=== PATIENT | male | born 1980 | race Caucasian/White ===

== ENCOUNTER → 2018-12-21 | Outpatient (CLI) | payer SELFPAY ==
[2018-12-21 11:11] VITALS: BMI 24.3
[2018-12-21 12:04] LABS: Bacteria 0 SEEN /hpf (None Seen); Mucous, Urine 0 SEEN /hpf (<or=2+); Squamous Epithelial Cells - UA 0 SEEN /hpf (0-5); White Blood Cells 0 SEEN /hpf (0-5)
[2018-12-21 13:05] LABS: Color, Urine Yellow (Yellow); Glucose, Dipstick Normal (Normal); Ketone-Dipstick Negative (Negative); Leukocyte Esterase-Dipstick Negative /ul (Negative); Nitrite-Dipstick Negative (Negative); Occult Blood-Urine 10 /ul (Negative); Protein-Dipstick Negative (Negative); Urine Bilirubin Dipstick Negative (Negative); Urine Clarity Clear (Clear); Urine Urobilinogen Normal (Normal)
[2018-12-21 13:13] LABS: Red Blood Cells-Urine 0-5 SEEN /hpf (0-5)
== END | disposition home or self-care (01) ==
LOC: LABSPEC 12:02
PROVIDERS: Family Provider Internal Medicine; PCP Internal Medicine; Visit Provider Nurse Practitioner Family
DX: Z00.00 Encounter for general adult medical examination without abnormal findings (principal)
CPT/HCPCS: 81001

== ENCOUNTER → 2019-01-10 08:34 | Outpatient (CLI) | payer OTHER, SELFPAY ==
[2018-12-21 11:11] VITALS: BMI 24.3
[2019-01-10 08:52] LABS: Hematocrit 47.4 % (40-54); Hemoglobin 15.4 g/dL (13.0-16.5); Mean Corp Hgb Conc 32.5 g/dL (32-36); Mean Corpuscular Hgb 30.6 pg (27.0-32.0); Mean Platelet Vol. 9.7 fl (6.2-12.0); Platelet Count 212 K/mm3 (150-450); RBC Distribution Width CV 12.4 % (11.6-14.6); RBC Distribution Width SD 43.1 fl (35.1-43.9); Red Blood Count 5.04 M/mm3 (4.6-6.2); White Blood Count 8.3 K/mm3 (4.4-11.0)
[2019-01-10 09:35] LABS: ALB/GLOB Ratio 1.2 RATIO (0.9-2.4); AST(SGOT) 19 U/L (15-37); Alanine Aminotransfer ALT/SGPT 25 U/L (16-61); Albumin, Serum 4.2 g/dL (3.2-5.0); Alkaline Phosphatase 84 U/L (45-117); Anion Gap 2 (5-15); BUN 24 mg/dL (7-18); BUN/Creat Ratio 19.4 RATIO (10-20); Calcium,Total 9.2 mg/dL (8.5-10.1); Chloride 106 mmol/L (98-107); Cholesterol 194 mg/dL (200); Creatinine, Serum 1.24 mg/dL (0.70-1.30); EST Glomerular Filtration Rate 69 mL/min (>60); Est Glom Filt Rate - Afr Amer 84 mL/min (>60); Globulin 3.5 g/dL (2.2-4.2); Glucose 99 mg/dL (74-106); High Density Lipoprotein 46 mg/dL; Protein, Total 7.7 g/dL (6.4-8.2); Sodium Level 140 mmol/L (136-145); Thyroid Stim Hormone (TSH) 0.84 uIU/mL (0.358-3.74); Triglycerides 208 mg/dL; Very Low Density Lipoprotein 42 mg/dL (5-40)
== END ==
PROVIDERS: Family Provider Internal Medicine; PCP Internal Medicine; Referring Provider Nurse Practitioner Family; Visit Provider Nurse Practitioner Family
DX: Z00.00 Encounter for general adult medical examination without abnormal findings (principal)
CPT/HCPCS: 36415; 80053; 80061; 84443; 85027

== ENCOUNTER → 2019-01-17 17:09 | Outpatient (CLI) | payer OTHER, SELFPAY ==
[2018-12-21 11:11] VITALS: BMI 24.3
--- NOTE | 2019-01-17 17:11 | CT_ITS ---
STUDY: CT ABDOMEN AND PELVIS WITHOUT CONTRAST REASON FOR EXAM: Male, 38 years old. Microhematuria RADIATION DOSAGE (If Supplied By Facility): CTDIvol = ( 7.24 ) mGy, DLP = ( 352.77 ) mGycm TECHNIQUE: Transaxial images were obtained from the dome of the diaphragm to the symphysis pubis without oral contrast, and without intravenous contrast. Sagittal and coronal images were reconstructed. Individualized dose optimization techniques were used for this CT. COMPARISON: None. FINDINGS: Examination is limited due to lack of IV contrast. Assessment of solid organs is limited. Diagnostic information is available. There is a 4 mm left renal upper calyceal stone without hydronephrosis. There are no ureteral stones. Right collecting system is clear. The visualized lung bases are unremarkable. The visualized portions of the heart are within normal limits. Normal liver. Normal gallbladder and extrahepatic biliary system. Normal spleen. Normal pancreas. Normal bilateral adrenal glands. Normal visualized stomach. Normal small intestine. Normal colon. The appendix is visualized and appears normal. Normal abdominal aorta. Normal inferior vena cava. Normal retroperitoneum. Normal urinary bladder. Normal abdominal wall. Normal osseous structures. CT/Abdomen/Pelvis without Cont IMPRESSION: 1. 4 mm left renal upper calyceal nonobstructing stone. 2. Refer to ultrasonography for further evaluation of kidneys, to exclude presence of renal parenchymal lesion in the setting of hematuria. Electronically Signed: Omkar Patterson, at 17:46 EDT Tel , Service support ,
== END ==
PROVIDERS: Family Provider Internal Medicine; PCP Internal Medicine; Referring Provider Urology; Visit Provider Urology
DX: R31.21 Asymptomatic microscopic hematuria (principal)
CPT/HCPCS: 74176

== ENCOUNTER 2019-02-04 05:48 | Day surgery (SDC) | payer OTHER, SELFPAY ==
[2018-12-21 11:11] VITALS: BMI 24.3
[2019-02-04] VITALS (7 sets, daily range): BP systolic 101–113; BP diastolic 70–83; PULSE 50–75; RESP 16; TEMP 36.1–36.9; O2SAT 94–96; BMI 25.2
--- NOTE | 2019-02-04 05:50 | RAD_ITS ---
STUDY: X-RAY - ABDOMEN/PELVIS REASON FOR EXAM: Male, 38 years old. Abdominal pain TECHNIQUE: Single AP view of the abdomen / pelvis. COMPARISON: None. FINDINGS: Normal visualized lung bases. There is a moderate amount of colonic fecal material. Limited evaluation for free air on a supine radiograph. Nonspecific bowel gas pattern. The visualized liver, spleen and kidneys are grossly normal in size and morphology. Normal soft tissue structures. Normal visualized osseous structures. RAD/Abdomen Single View IMPRESSION: Moderate stool in colon. Nonspecific bowel gas pattern. Electronically Signed: Nolan Burrell, at 6:49 EDT Tel , Service support ,
[2019-02-04] MEDS: Lactated Ringers 1,000 ML 100 ML IV ×2 (06:47→09:15)
[2019-02-04] MEDS: Cefazolin 2 GM in 0.9% Normal Saline 100 ML IV (07:36)
--- NOTE | 2019-02-04 07:41 | DCINST_ITS ---
Discharge Diet: No Restrictions, Light diet - advance as tolerated Discharge Activity: Return to Normal Activity Call your doctor if your incision/area has: Sudden Increased Bleeding Call your doctor if you observe: Fever of 101 or Higher Instructions: Shock Wave Lithotripsy Additional Instructions: use Ibuprofen 800mg 1 po every 8 hour for pain and tylenol 500mg 1 po q4h every 4hr for pain push fluids. Allergies/Adverse Reactions: Allergies No Known Allergies Allergy (Verified 02/04/19 06:31) Medications to take at Discharge nicotine (polacrilex) 2 mg gum 2 mg BUCCAL Q2H 11/25/17 Primary Care Physician: Judith Arteaga MD [Primary Care Provider] - Test Results: Test results from this visit will be discussed in further detail at your follow- up appointment, if applicable. Please Follow Up With: Michael Grajeda MD When: in 2 weeks, please call to make an appointment.
--- NOTE | 2019-02-04 08:16 | PCM.OPRPT ---
Report of Operation Date of Procedure: 02/04/19 Pre-Operative Diagnosis: Left renal calculi Post-Operative Diagnosis: Same Surgery/Procedure Performed:: Left extracorporeal shockwave lithotripsy Description of Surgical Findings:: 38-year-old male taken back to the operating room at the smooth induction of general anesthesia he was placed supine on the table we then located the stone in the upper pole of the left kidney using fluoroscopy and translation technique we started lithotripsy of the stone at a rate of 90 working her power up from 5 to 7 kV after thousand shockwaves a stone or broke up fairly well but we still see some few fragments we continue with treatment we are monitoring the stone with fluoroscopy during the entire treatment and then decided to treat the stone with 2000 shockwaves at that point in 2000 shockwaves stone it broken up fairly well. Under fluoroscopy could not see any more significant fragments successful treatment of the stone. No stent was placed and patient anesthetic is currently being reversed plan to see him back in a few weeks with an x-ray. Type of Anesthesia:: General Drains: none - Admit VTE Documentation VTE Present on Admission: No VTE Mechan Device Prophylaxis: SCD's
[2019-02-04] MEDS: Ketorolac 15 MG/ML Vial IV (09:16)
== END 2019-02-04 10:13 | disposition home or self-care (01) ==
LOC: SDC 05:48 → AC 05:49
PROVIDERS: Family Provider Internal Medicine; PCP Internal Medicine; Referring Provider Urology; Visit Provider Urology
PROC: (CPT 50590; principal; 2019-02-04 07:20)
DX: N20.0 Calculus of kidney (principal); Z87.442 Personal history of urinary calculi; Z87.891 Personal history of nicotine dependence
CPT/HCPCS: 00873; 50590; 74018; J7120; J2405

== ENCOUNTER → 2019-02-08 10:38 | Outpatient (CLI) | payer OTHER, SELFPAY ==
[2019-02-04 06:35] VITALS: BMI 25.2
--- NOTE | 2019-02-08 10:49 | CT_ITS ---
STUDY: CT ABDOMEN AND PELVIS WITHOUT CONTRAST REASON FOR EXAM: Male, 38 years old. Right flank pain and hematuria. Recent lithotripsy. RADIATION DOSAGE (If Supplied By Facility): CTDIvol = ( 7.58 ) mGy, DLP = ( 390.31 ) mGycm TECHNIQUE: Transaxial images were obtained from the dome of the diaphragm to the symphysis pubis without oral contrast, and without intravenous contrast. Sagittal and coronal images were reconstructed. Individualized dose optimization techniques were used for this CT. COMPARISON: Comparison is made with prior study of January 17, 2019. FINDINGS: The visualized lung bases are unremarkable. The visualized portions of the heart are within normal limits. Normal liver. Normal gallbladder and extrahepatic biliary system. Normal spleen. Normal pancreas. Normal bilateral adrenal glands. Normal right kidney. Stable 4 mm nonobstructive calculus in the upper pole calyx of the left kidney. Minimal fullness of the left renal pelvis. Normal visualized stomach. Normal small intestine. Normal colon. The appendix is visualized and appears normal. Normal abdominal aorta. Normal inferior vena cava. Normal retroperitoneum. Normal urinary bladder. There are prostatic calcifications. Normal abdominal wall. Normal osseous structures. CT/Abdomen/Pelvis without Cont IMPRESSION: Stable 4 mm nonobstructive calculus in the upper pole calyx of the left kidney. Electronically Signed: Dung Munoz, at 13:20 EDT , Service support ,
== END ==
PROVIDERS: Family Provider Internal Medicine; PCP Internal Medicine; Referring Provider Urology; Visit Provider Urology
DX: R10.9 Unspecified abdominal pain (principal); R31.9 Hematuria, unspecified
CPT/HCPCS: 74176; 87086

== ENCOUNTER → 2019-03-08 09:35 | Outpatient (CLI) | payer OTHER, SELFPAY ==
[2019-02-04 06:35] VITALS: BMI 25.2
--- NOTE | 2019-03-08 09:36 | RAD_ITS ---
STUDY: X-RAY - ABDOMEN/PELVIS REASON FOR EXAM: Male, 38 years old. Follow-up of left kidney stones. Lithotripsy. TECHNIQUE: Single AP view of the abdomen / pelvis. COMPARISON: 02/04/2019. FINDINGS: Normal visualized lung bases. Possible 4 mm stone in the upper pole of the left kidney. No other definite renal or ureteral stones. There is an unremarkable bowel gas pattern. There is no demonstrated free abdominal air. The visualized liver, spleen and kidneys are grossly normal in size and morphology. Normal soft tissue structures. Normal visualized osseous structures. RAD/Abdomen Single View IMPRESSION: Possible 4 mm stone in the upper pole of the left kidney. Electronically Signed: Mando Gamble MD at 19:20 EST , Service support ,
== END ==
PROVIDERS: Family Provider Internal Medicine; PCP Internal Medicine; Referring Provider Urology; Visit Provider Urology
DX: N20.0 Calculus of kidney (principal)
CPT/HCPCS: 74018

== ENCOUNTER → 2019-12-16 09:49 | Outpatient (CLI) | payer OTHER, SELFPAY ==
[2019-12-16 09:15] VITALS: BMI 25.2
[2019-12-16 09:52] LABS: Bacteria 0 SEEN /hpf (None Seen); Mucous, Urine 0 SEEN /hpf (<or=2+); Red Blood Cells-Urine 0 SEEN /hpf (0-5); Squamous Epithelial Cells - UA 0 SEEN /hpf (0-5); White Blood Cells 0 SEEN /hpf (0-5)
--- NOTE | 2019-12-16 10:15 | RAD_ITS ---
STUDY: X-RAY CHEST REASON FOR EXAM: Male, 39 years old. DYSPNEA FOR ABOUT 2 MONTHS PER PATIENT. TECHNIQUE: PA and lateral views of the chest. COMPARISON: 06/23/2018 FINDINGS: The lungs are clear and expanded. There is no demonstrated pleural abnormality. Normal size heart. Normal mediastinum and reinier. Normal visualized pulmonary arteries. Normal visualized aortic arch and descending thoracic aorta. Normal visualized thoracic spine. Normal visualized ribs, clavicles, and shoulders. There is no demonstrated abnormality of the visualized soft tissue structures of the upper abdomen. RAD/Chest PA and Lateral IMPRESSION: Normal x-ray examination of the chest. Electronically Signed: Leon Chandler MD at 10:39 EDT Tel , Service support ,
[2019-12-16 12:16] LABS: Color, Urine Yellow (Yellow); Glucose, Dipstick Normal (Normal); Ketone-Dipstick Negative (Negative); Leukocyte Esterase-Dipstick Negative /ul (Negative); Nitrite-Dipstick Negative (Negative); Occult Blood-Urine Negative /ul (Negative); Protein-Dipstick Negative (Negative); Urine Bilirubin Dipstick Negative (Negative); Urine Clarity Clear (Clear); Urine Urobilinogen Normal (Normal)
[2019-12-16 12:37] LABS: Vitamin B12 290 pg/mL (211-911); Vitamin D,25 Hydroxy 27.6 ng/mL
[2019-12-16 12:56] LABS: Thyroid Stim Hormone (TSH) 0.86 uIU/mL (0.358-3.74)
== END ==
PROVIDERS: PCP Internal Medicine; Referring Provider Nurse Practitioner Family; Visit Provider Nurse Practitioner Family
DX: R06.00 Dyspnea, unspecified (principal); E56.9 Vitamin deficiency, unspecified; R53.83 Other fatigue; R31.9 Hematuria, unspecified
CPT/HCPCS: 36415; 71046; 81001; 82306; 82607; 84443

== ENCOUNTER → 2020-03-19 | Outpatient (CLI) | payer OTHER, SELFPAY ==
[2020-03-19 09:31] VITALS: BMI 27.4
[2020-03-19 13:40] LABS: Bacteria 0 SEEN /hpf (None Seen); Mucous, Urine 0 SEEN /hpf (<or=2+); Red Blood Cells-Urine 0 SEEN /hpf (0-5); Squamous Epithelial Cells - UA 0 SEEN /hpf (0-5)
[2020-03-19 14:11] LABS: Color, Urine Yellow (Yellow); Glucose, Dipstick Normal (Normal); Ketone-Dipstick Negative (Negative); Leukocyte Esterase-Dipstick 25 /ul (Negative); Nitrite-Dipstick Negative (Negative); Occult Blood-Urine Negative /ul (Negative); Protein-Dipstick Negative (Negative); Urine Bilirubin Dipstick Negative (Negative); Urine Clarity Clear (Clear); Urine Urobilinogen Normal (Normal)
[2020-03-19 14:31] LABS: White Blood Cells 0-5 SEEN /hpf (0-5)
== END | disposition home or self-care (01) ==
LOC: LABSPEC 12:55
PROVIDERS: PCP Internal Medicine; Visit Provider Physician Assistant Surgical
DX: R82.90 Unspecified abnormal findings in urine (principal); R30.0 Dysuria
CPT/HCPCS: 81001

== ENCOUNTER 2021-04-20 18:37 | Emergency (ER) | payer OTHER, SELFPAY ==
[2021-04-20 18:38] VITALS: BP 142/96; PULSE 95; RESP 16; TEMP 35.8; O2SAT 94; BMI 28.3
--- NOTE | 2021-04-20 18:50 | US_ITS ---
STUDY: SCROTUM ULTRASOUND REASON FOR EXAM: Male, 40 years old. R testic pain TECHNIQUE: Ultrasound evaluation of the scrotum was performed with color Doppler and static sweet-scale imaging. COMPARISON: None. FINDINGS: RIGHT TESTICLE INTRATESTICULAR: There is a normal size of the right testicle. The right testicle measures 4.8 x 2.8 x 2.2 cm. There is a homogenous echotexture. There is increased arterial and normal venous vascularity. There is no demonstrated right testicular mass or cyst. EXTRATESTICULAR: The epididymis is normal in size. The epididymis head measures 1.3 x 0.8 x 0.9 cm. There is increased vascularity of the epididymis. There is a tiny epididymal cyst and mild tubular ectasia secondary to prior vasectomy. There is no demonstrated hydrocele. Small VALSALVA induced varicocele. There is no demonstrated extratesticular mass or cyst. LEFT TESTICLE INTRATESTICULAR: There is a normal size of the left testicle. The left testicle measures 3 x 3.1 x 3.5 cm. There is a homogenous echotexture. There is normal arterial and normal venous vascularity. There is no demonstrated left testicular mass or cyst. EXTRATESTICULAR: The epididymis is normal in size. The epididymis head measures 3 x 0.8 x 0.5 cm. There is normal vascularity of the epididymis. There is no demonstrated epididymal cystic structure. There is a small hydrocele. There is no demonstrated varicocele. There is no demonstrated extratesticular mass or cyst. US/Testicular with Arterial Flow IMPRESSION: Findings consistent with acute epididymoorchitis. . Tiny right epididymal cyst and VALSALVA induced varicocele. Small left hydrocele Electronically Signed: Kan Sarmiento MD at 20:48 EST , Service support ,
--- NOTE | 2021-04-20 18:55 | EX.ED.GUMALE ---
HPI History of Present Illness Chief Complaint: Male Pain/Injury Informant: patient Pain Onset: Hours (2) Context: Sudden Onset Timing: Continuous Current Severity: Severe Maximum Severity: Severe Worsened by: any manipulation/movement R testicle Relieved by: nothing; tried ibuprofen Related History Sexually: Active and Single Partner STD: No Narrative Narrative: Patient states he was sitting in a car driving when all of a sudden his right testicle started hurting severely with no obvious cause. No injury. Pain radiating up into his abdomen a little, and down his right thigh a little. Never had this before. No urinary symptoms recently or discharge. No rashes. No history of STDs, no high risk sexual activity. Monogamous with a significant other. No recent illness. [facility] Medical History (Updated 04/20/21 @ 21:[address] Darrell Mansfield MD) Abrasion of left index finger Bipolar disorder (manic depression) COVID-19 vaccine series completed Generalized anxiety disorder MVP (mitral valve prolapse) Need for Tdap vaccination Home Medications albuterol sulfate 90 mcg/actuation aerosol inhaler 2 puff INHALATION Q6H PRN #8.5 g 12/27/20 [Rx Last Taken Unknown] levofloxacin 500 mg PO DAILY #9 tab 04/20/21 [Rx Last Taken Unknown] Allergy/AdvReac Type Severity Reaction Status Date / Time No Known Allergies Allergy Verified 04/20/21 18:37 Family History Grandfather Alcoholism Cancer Depression Heart disease Hypertension Mother Anemia Anxiety Hypertension Hyperlipemia Kidney disease Father Hypertension Hyperlipemia Kidney disease Grandmother Heart disease Anemia Surgical History History of myringotomy History of tonsillectomy History of vasectomy Hx of lithotripsy Social History Smoking Status: Current some day smoker tobacco type: cigarettes Tobacco: How many years used: 18 alcohol intake: current alcohol intake frequency: 0-2 drinks per day substance use type: does not use what type of physical activity do you participate in: other details: does a lot of yard work frequency: daily ROS ROS ED Constitutional Constitutional ED: Denies chills or fever(s) Eyes Eyes: Denies change in vision or diplopia ENT ENT ED: Denies rhinorrhea or sore throat Cardiovascular Cardiovascular: Denies chest pain or palpitations Respiratory/Chest Respiratory/Chest: Denies cough or dyspnea Gastrointestinal Gastrointestinal: Reports nausea; Denies abdominal pain, diarrhea or vomiting Genitourinary Genitourinary ED: Reports as per HPI and scrotal pain; Denies dysuria or hematuria Musculoskeletal Musculoskeletal: Denies back pain or neck pain Integumentary Denies abscess or rash Neurologic Neurologic: Denies headache(s), paresthesias or weakness Psychiatric Psychiatric: Denies anxiety or suicidal thoughts EXAM Physical Exam Const Vital Signs: 04/20/21 18:38 Temperature 96.5 F L Temperature Source Temporal Pulse Rate 95 Respiratory Rate 16 Blood Pressure 142/96 H Blood Pressure Mean 111 Pulse Ox 94 Oxygen Delivery Method Room Air Positive well nourished and well developed General Appearance ED: well developed and NAD HEENT Reports moist mucous membranes normocephalic and atraumatic Eyes PERRL and EOMs intact bilaterally Neck full ROM and supple Resp normal respiratory effort and clear to auscultation bilaterally Cardio regular rate, regular rhythm and no murmurs GI non-tender and non-distended Auscultation: normoactive bowel sounds Palpation: soft Narrative: Left testicle with normal lie and nontender, normal in appearance. Right testicle is somewhat drawn up, it has a different lie, extremely tender to even very mild palpation, cremasteric reflex is absent on the right. No blue dot sign. No palpable hernia, examined while standing. No palpable masses. Back/Spine no CVA tenderness General Back: other FROM Extremity normal to inspection General Extremety ED: Negative for edema, pulses abnormal or tenderness General Extremity: Negative for edema or pulses abnormal Neuro oriented x3, CN's II-XII intact bilaterally and no sensory deficits noted Sensorium / Orientation: awake and alert Motor Exam: strength 5/5 throughout Skin no rashes or lesions noted and no wounds MDM MDM MDM Narrative Medical decision making narrative: Concerned about poss testicular torsion. We do not have any urology coverage today. Therefore emergent ultrasound was ordered for which firestopper technician needed to be called in. In the meantime he was provided with IV morphine and Zofran. Ultrasound is reassuring, showing INCREASED right testicular vascularity, in the testicle as well as epididymis, consistent with epididymoorchitis. Will start him on Levaquin and recommend NSAIDs, and outpatient urologic follow-up if does not improve. He is comfortable with that plan. I did send off for GC and chlamydia although this is a low risk patient for those. Lab Data Attestation: I reviewed the patient's lab results. Labs: Laboratory Results - last 24 hr 04/20/21 19:13 Urine Color Yellow Urine Clarity Sl. Cloudy Urine pH 6.5 Ur Specific [place] 1.020 Urine Protein 15 H Urine Glucose (UA) Normal Urine Ketones Negative Urine Occult Blood 25 H Urine Nitrite Negative Urine Bilirubin Negative Urine Urobilinogen Normal Ur Leukocyte Esterase 100 H Urine RBC 0-5 SEEN Urine WBC 0-5 SEEN Ur Squamous Epith Cells 0-5 SEEN Amorphous Sediment 1+ Urine Bacteria 0 SEEN Urine Mucus 0 SEEN Radiography Diagnostic Testing: Clinical Impression(s) from Imaging Studies Testicular Ultrasound 04/20/21 18:50 IMPRESSION: Findings consistent with acute epididymoorchitis. . Tiny right epididymal cyst and VALSALVA induced varicocele. Small left hydrocele Electronically Signed: Kan Sarmiento MD at 20:48 EST , Service support , Discharge Plan Triage Chief Complaint: Male Pain/Injury ED Provider: Darrell Mansfield Dx/Rx/DC Orders Clinical Impression: Acute epididymo-orchitis Instructions: Treating Epididymitis and Orchitis Prescriptions: New levofloxacin [levofloxacin] 500 MG tablet 500 mg PO DAILY Qty: 9 RF: 0 No Action albuterol sulfate 90 mcg/actuation HFA aerosol inhaler 2 puff inhalation Q6H PRN (Reason: shortness of breath or wheezing) Qty: 8.5 RF: 1 Primary Care Provider: Judith Arteaga Referrals: Judith Arteaga MD [Primary Care Provider] - Michael Grajeda MD [STAFF PHYSICIAN] - 1 Week if not improving Disposition Disposition: Home, Self Care
[2021-04-20 19:18] LABS: Bacteria 0 SEEN /hpf (None Seen); Color, Urine Yellow (Yellow); Glucose, Dipstick Normal (Normal); Ketone-Dipstick Negative (Negative); Leukocyte Esterase-Dipstick 100 /ul (Negative); Mucous, Urine 0 SEEN /hpf (<or=2+); Nitrite-Dipstick Negative (Negative); Occult Blood-Urine 25 /ul (Negative); Protein-Dipstick 15 mg/dl (Negative); Urine Bilirubin Dipstick Negative (Negative); Urine Clarity Sl. Cloudy (Clear); Urine Urobilinogen Normal (Normal); Urine pH 6.5 (5.0 - 8.0)
[2021-04-20] MEDS: Morphine 4 MG/ML Syringe IV (19:23)
[2021-04-20] MEDS: Ondansetron 4 MG/2 ML Vial IV (19:23)
[2021-04-20 19:25] LABS: White Blood Cells 0-5 SEEN /hpf (0-5)
[2021-04-20 19:26] LABS: Red Blood Cells-Urine 0-5 SEEN /hpf (0-5); Squamous Epithelial Cells - UA 0-5 SEEN /hpf (0-5)
[2021-04-20 19:27] LABS: Amorphous Sediment 1+
[2021-04-20] MEDS: levoFLOXacin 500 MG Tablet PO (21:29)
[2021-04-24 00:06] LABS: Chlamydia By Nucleic Acid AMP Negative (Negative)
[2021-04-24 08:45] LABS: Gonococcus By Nucleic Acid AMP Negative (Negative)
== END 2021-04-20 21:31 | disposition home or self-care (01) ==
PROVIDERS: Emergency Provider Emergency Medicine; PCP Internal Medicine
DX: N45.3 Epididymo-orchitis (principal); N43.3 Hydrocele, unspecified; F31.9 Bipolar disorder, unspecified; F17.210 Nicotine dependence, cigarettes, uncomplicated
CPT/HCPCS: 76870; 81001; 87491; 87591; 93976; 96374; 96375; 99282; A4216; J2405

== ENCOUNTER → 2022-01-29 | Outpatient (CLI) | payer OTHER, SELFPAY ==
[2022-01-29 12:53] LABS: Vitamin B12 217 pg/mL (211-911); Vitamin D,25 Hydroxy 14.8 ng/mL
[2022-01-29 12:55] LABS: Thyroid Stim Hormone (TSH) 1.38 uIU/mL (0.358-3.74)
== END | disposition home or self-care (01) ==
LOC: BIMLAB 09:42
PROVIDERS: PCP Nurse Practitioner Family; Referring Provider Nurse Practitioner Family; Visit Provider Nurse Practitioner Family
DX: E56.9 Vitamin deficiency, unspecified (principal); R63.5 Abnormal weight gain
CPT/HCPCS: 36415; 82306; 82607; 84443

== ENCOUNTER → 2022-02-03 | Outpatient (CLI) | payer OTHER, SELFPAY ==
[2022-02-03 16:32] LABS: Absolute Lymphocyte Count 2.35 X10^3/uL (0.83-4.51); Basophil# 0.06 X10^3/uL; Basophil% 0.8 % (0-1); Eosinophil# 0.25 X10^3/uL; Eosinophils% 3.5 % (0-5); Hematocrit 44.4 % (40-54); Hemoglobin 14.6 g/dL (13.0-16.5); Lymphocyte # 2.35 X10^3/ul (0.83-4.51); Lymphocyte % 32.7 % (19-41); Mean Corp Hgb Conc 32.9 g/dL (32-36); Mean Corpuscular Hgb 30.8 pg (27.0-32.0); Mean Corpuscular Volume 93.7 fL (80-94); Mean Platelet Vol. 10.8 fl (6.2-12.0); Monocyte# 0.49 X10^3/uL; Monocyte% 6.8 % (0-10); NRBC Flagged by Analyzer 0 % (0-5); Neutrophil # 3.99 X10^3/uL (2.7-7.7); Neutrophil % 55.6 % (47-70); Platelet Count 250 K/mm3 (150-450); RBC Distribution Width SD 41.7 fl (35.1-43.9); Red Blood Count 4.74 M/mm3 (4.6-6.2); White Blood Count 7.2 K/mm3 (4.4-11.0)
[2022-02-03 16:51] LABS: ALB/GLOB Ratio 1.1 RATIO (0.9-2.4); AST(SGOT) 27 U/L (15-37); Alanine Aminotransfer ALT/SGPT 55 U/L (16-61); Albumin, Serum 4.2 g/dL (3.2-5.0); Alkaline Phosphatase 82 U/L (45-117); Anion Gap 6 (5-15); BUN 14 mg/dL (7-18); BUN/Creat Ratio 11.5 RATIO (10-20); Calcium,Total 9.3 mg/dL (8.5-10.1); Chloride 107 mmol/L (98-107); Creatinine, Serum 1.22 mg/dL (0.70-1.30); EST Glomerular Filtration Rate 69 mL/min (>60); Est Glom Filt Rate - Afr Amer 84 mL/min (>60); Globulin 3.7 g/dL (2.2-4.2); Glucose 98 mg/dL (74-106); Potassium 4.2 mmol/L (3.5-5.1); Protein, Total 7.9 g/dL (6.4-8.2); Sodium Level 141 mmol/L (136-145); Troponin-I HS < 3 pg/mL (3.0-78.0)
[2022-02-07 00:08] LABS: Endomysial Antibody IgA Negative (Negative); Immunoglobulin A 100 mg/dL (90-386)
[2022-02-08 15:02] LABS: Vitamin B1, Thiamine 135.2 nmol/L (66.5-200.0); t-Transglutaminase IgA <2 U/mL (0-3)
== END | disposition home or self-care (01) ==
LOC: BIMLAB 15:12
PROVIDERS: PCP Nurse Practitioner Family; Referring Provider Internal Medicine; Visit Provider Internal Medicine
DX: R42 Dizziness and giddiness (principal); E56.9 Vitamin deficiency, unspecified; Z78.9 Other specified health status
CPT/HCPCS: 36415; 80053; 82784; 83516; 84425; 84484; 85025; 86255

== ENCOUNTER 2022-03-17 13:59 | Outpatient (CLI) | payer OTHER, SELFPAY ==
--- NOTE | 2022-03-17 14:08 | RAD_ITS ---
STUDY: X-RAY - ABDOMEN/PELVIS REASON FOR EXAM: Male, 41 years old. Hematuria. TECHNIQUE: Single AP view of the abdomen / pelvis on 2 images. COMPARISON: February 04, 2019. FINDINGS: Normal visualized lung bases. There is an unremarkable bowel gas pattern with gas seen to the rectosigmoid. There is no demonstrated free abdominal air. The visualized liver, spleen and kidneys are grossly normal in size and morphology. Normal soft tissue structures. Normal visualized osseous structures. RAD/Abdomen Single View IMPRESSION: No interval change. No acute finding of the lower chest, abdomen or pelvis. Electronically Signed: Ezio Milian, at 15:29 EST ,
== END 2022-03-17 23:59 | disposition home or self-care (01) ==
LOC: RAD 14:00
PROVIDERS: PCP Nurse Practitioner Family; Visit Provider Registered Nurse
DX: R31.9 Hematuria, unspecified (principal)
CPT/HCPCS: 74018

== ENCOUNTER 2022-03-19 10:00 | Outpatient (RCR) | payer OTHER, SELFPAY ==
--- NOTE | 2022-02-21 09:53 | HP.PTEVAL_ITS ---
Patient's Visit Information LEÓN CALLEJAS is a 41 year old M referred to Physical Therapy by ROSEMARIE Vela with a diagnosis of Dizziness and Giddiness. Date of Evaluation: 02/21/22 Physical Therapist: NI Albrecht - Visit Plan Frequency: 1-2x /Week Duration: 3 Months Plan: 1-2X/ week for 8-12 weeks for head movements (habituation) (vertical is worse than horizotnal), vestibular inputs (foam with EC), gait training, VOR exercises with HEP - Subjective Pt has been dizzy on/off since Jan 31. Was at PCP got ears flushed. Got B 12 shot and found was Vit D deficitient. Was dizzy at air port 2 (Jan 31) days later and dry heaves and dizziness at the air port. Made it to the gait. Did not get on the flight. Dr at this point wondering if it is anxiety/depression. He reports that his dizziness (does not feel like he is falling), feels pressure behind his eyes, feels fatigued, hard to think, and exacurbated by social situations. He has never had issue before with social situations. He is on a PRN med for anxiety (hydroxine). He took is once and made him a little more dizzy. He was given effexor (has only take once and threw up). He works in the hospital. He does not get the dizzy at night. He feels dizzy right now. He is always stressed. Loud noises bother him. He is a little bothered by the speckles in the carpet. Driving does not bother him except he feels tired. He is sleeping. He reports that he does not get room spinning dizziness. He is still working... He only does yard work for exercises. No MCNEIL. did all the blood tests (neuro exam and blood work). Sleeping ok. Stairs are ok. He reports some unsteadiness with walking when he feels that he is going to pass out. - Objective Gait: Walks with normal gait pattern. CATSIB 85 (standing on foam with EC in crease spinning in clockwise motion and had to grab therapist due to being dizzy). FGA 23. Smooth Pursuit vertical and horizontal: slight increase in dizziness (vertical pt had some eye jumpiness when trying to keep track of the target). VOR X 1: (head shake with eyes focused) X 30 seconds... slight increase in dizziness. VOR Cx: (head and eyes moving in same direction): Horizontal.. Increase dizziness and nauseated and vertical.... X 15 seconds not as fluid movement, increase dizziness and increase eye squinting. Same as above in standing: (horizontal...some dizziness but same as in sitting). Vertical: (X 10 seconds increase dizziness and hard to keep head moving). Pt was stirred up after the evaluation... his eyes were tired. - Balance/Special Test Scores Functional Gait Assessment Score: 23 % Disability: 23.3400 CATSIB Score (Max score 120 seconds): 85 Dizziness Score: 36 - Goals Goal 1:: I HEP Progression Goal Time Frame: 8-12 Weeks Goal 2:: Be able to walk with horizontal and vertical head turns without LOB or dizziness or nausea Goal Time Frame: 8-12 Weeks Goal 3:: Be able to stand on foam with EC for 30 seconds without LOB Goal Time Frame: 8-12 Weeks Goal 4:: Be able to perform FGA with increase score (score was 23 at eval) Goal Time Frame: 8-12 Weeks Goal 5:: Be able to subjectively describe less dizziness and increase function throughout the day by 50% Goal Time Frame: 8-12 Weeks - Rehabilitation Potential Rehabilitation Potential: Good - Anticipated Interventions Patient/Client Instruction: Educate patient on: Condition, Plan of Care For the Purpose of:: To improve nutrient delivery to tissue, To improve muscle performance and motor function, To improve ability to perform ADL's, To increase tolerance to activity/condition/position, To improve performance and independence with ADL's, To decrease level of supervision to perform tasks, To improve ability of physical actions for home/community/work/leisure, To improve gait and locomotor functions, To improve health of tissue, To increase flexibility/ROM, To improve endurance, To improve balance, To improve safety with gait Therapeutic Exercise to Include: Endurance training, Balance training, Coordination, Body mechanics, Postural training, Gait and locomotor training, Neuromotor development, via [employer] Balance Mas For the Purpose of:: To improve ability to perform ADL's, To increase tolerance to activity/condition/position, To improve performance and independence with ADL's, To improve ability of physical actions for home/community/work/leisure, To improve gait and locomotor functions, To improve balance, To improve safety with gait Functional Training to Include: Gait training For the Purpose of:: To improve safety with gait Thank you for the opportunity to evaluate your patient. For Medicare and Medicare HMO plans, please review the plan of care and approve it. It will need to be FAXED BACK to us at [phone] for Medicare purposes. For Medicare only, by signing this I certify the plan of care. Please let me know if there are questions or concerns regarding this plan of care. Physician Signature: Date:_
== END 2022-03-19 19:00 | disposition home or self-care (01) ==
LOC: PT 10:00
PROVIDERS: PCP Nurse Practitioner Family; Referring Provider Nurse Practitioner Family; Visit Provider Nurse Practitioner Family
DX: R42 Dizziness and giddiness (principal)
CPT/HCPCS: 97110; 97140; 97161; 97530

== ENCOUNTER 2022-03-28 16:10 | Outpatient (CLI) | payer OTHER, SELFPAY ==
--- NOTE | 2022-03-28 16:23 | MRI_ITS ---
STUDY: MRI BRAIN WITH AND WITHOUT CONTRAST REASON FOR EXAM: Male, 41 years old. VERTIGO, DIZZINESS TECHNIQUE: Standardized multiplanar fat and water weighted pulse sequences were obtained. IV 20mL CLARISCAN was administered for the contrast portion of the examination. COMPARISON: CT brain without contrast 06/24/2016. FINDINGS: INFARCT/HEMORRHAGE/MASS: No acute infarct, hemorrhage, or mass. No midline shift, hydrocephalus or herniation. WHITE MATTER AND VOLUME: The brain has normal signal and volume. POSTCONTRAST: No abnormal enhancement. FLOW VOIDS: Major flow voids preserved. PARANASAL SINUSES: Polypoid mucosal thickening (the right maxillary sinuses. Partial opacification ethmoid air cells due to mucosal thickening. Left alix bullosa. CALVARIUM: Calvarium unremarkable. EXTRACRANIAL SOFT TISSUES: Extracranial soft tissues unremarkable. MRI/Brain W/WO Contrast IMPRESSION: Normal MRI brain without and with intravenous contrast. Electronically Signed: Sergei Casillas MD at 5:56 EST ,
== END 2022-03-28 23:59 | disposition home or self-care (01) ==
LOC: MRI 16:11
PROVIDERS: PCP Nurse Practitioner Family; Referring Provider Nurse Practitioner Family; Visit Provider Nurse Practitioner Family
DX: R42 Dizziness and giddiness (principal)
CPT/HCPCS: 70553; A9575

== ENCOUNTER → 2022-04-30 | Outpatient (CLI) | payer OTHER, SELFPAY ==
[2022-04-30 12:56] LABS: Erythrocyte Sedimentation Rate 3 mm/hr (0-20)
[2022-04-30 13:10] LABS: CRP < 2.90 mg/L (0.0-3.0); Cholesterol 270 mg/dL (200); High Density Lipoprotein 52 mg/dL; Triglycerides 325 mg/dL; Very Low Density Lipoprotein 65 mg/dL (5-40)
[2022-04-30 13:12] LABS: Vitamin B12 419 pg/mL (211-911)
[2022-05-02 19:30] LABS: ANTINUCLEAR ANTIBODIES DIRECT Negative (Negative)
== END | disposition home or self-care (01) ==
LOC: BIMLAB 10:24
PROVIDERS: PCP Nurse Practitioner Family; Referring Provider Nurse Practitioner Family; Visit Provider Nurse Practitioner Family
DX: R53.83 Other fatigue (principal); E53.8 Deficiency of other specified B group vitamins; E78.5 Hyperlipidemia, unspecified
CPT/HCPCS: 36415; 80061; 82607; 85652; 86038; 86140; 86225; 86235

== ENCOUNTER → 2022-05-08 | Outpatient (CLI) | payer OTHER, SELFPAY | END | disposition home or self-care (01) | PROVIDERS: PCP Nurse Practitioner Family; Referring Provider Nurse Practitioner Family; Visit Provider Nurse Practitioner Family | DX: G47.10 Hypersomnia, unspecified (principal); R53.83 Other fatigue; E53.8 Deficiency of other specified B group vitamins | CPT/HCPCS: 95806 ==

== ENCOUNTER → 2022-06-11 | Outpatient (CLI) | payer OTHER, SELFPAY ==
[2022-06-11 13:25] LABS: Amphetamine Urine VISTA NEGATIVE (<1000 ng/mL); Barbiturate Urine VISTA NEGATIVE (< 200 ng/mL); Benzodiazepine Urine VISTA NEGATIVE (< 200 ng/mL); Cocaine Urine VISTA NEGATIVE (< 300 ng/mL); Ecstacy Urine VISTA NEGATIVE (< 500 ng/mL); Methadone Urine VISTA NEGATIVE (< 300 ng/mL); PCP Urine VISTA NEGATIVE (< 25 ng/mL); THC Urine VISTA NEGATIVE (< 50 ng/mL); Vista UDS pH Range 7
== END | disposition home or self-care (01) ==
LOC: LABSPEC 11:55
PROVIDERS: PCP Nurse Practitioner Family; Referring Provider Nurse Practitioner Family; Visit Provider Nurse Practitioner Family
DX: F41.9 Anxiety disorder, unspecified (principal)
CPT/HCPCS: 80307

== ENCOUNTER → 2022-09-19 | Outpatient (CLI) | payer OTHER, SELFPAY ==
[2022-09-19 12:16] LABS: Absolute Lymphocyte Count 2.29 X10^3/uL (0.83-4.51); Basophil# 0.06 X10^3/uL; Eosinophil# 0.38 X10^3/uL; Hematocrit 46.9 % (40-54); Hemoglobin 15.3 g/dL (13.0-16.5); Lymphocyte # 2.29 X10^3/ul (0.83-4.51); Lymphocyte % 36.3 % (19-41); Mean Corp Hgb Conc 32.6 g/dL (32-36); Mean Corpuscular Hgb 30.3 pg (27.0-32.0); Mean Corpuscular Volume 92.9 fL (80-94); Mean Platelet Vol. 10.5 fl (6.2-12.0); Monocyte# 0.58 X10^3/uL; Monocyte% 9.2 % (0-10); NRBC Flagged by Analyzer 0 % (0-5); Neutrophil # 2.95 X10^3/uL (2.7-7.7); Neutrophil % 46.9 % (47-70); Platelet Count 238 K/mm3 (150-450); RBC Distribution Width CV 11.9 % (11.6-14.6); RBC Distribution Width SD 40.8 fl (35.1-43.9); Red Blood Count 5.05 M/mm3 (4.6-6.2); White Blood Count 6.3 K/mm3 (4.4-11.0)
[2022-09-19 12:55] LABS: Vitamin B12 > 2000 pg/mL (211-911); Vitamin D,25 Hydroxy 45.3 ng/mL
[2022-09-19 13:02] LABS: ALB/GLOB Ratio 1.1 RATIO (0.9-2.4); AST(SGOT) 28 U/L (15-37); Alanine Aminotransfer ALT/SGPT 62 U/L (16-61); Alkaline Phosphatase 75 U/L (45-117); Anion Gap 5 (5-15); BUN 21 mg/dL (7-18); BUN/Creat Ratio 18.1 RATIO (10-20); Calcium,Total 8.9 mg/dL (8.5-10.1); Chloride 107 mmol/L (98-107); Cholesterol 190 mg/dL (200); Creatinine, Serum 1.16 mg/dL (0.70-1.30); EST Glomerular Filtration Rate 73 mL/min (>60); Est Glom Filt Rate - Afr Amer 89 mL/min (>60); Globulin 3.8 g/dL (2.2-4.2); Glucose 103 mg/dL (74-106); High Density Lipoprotein 45 mg/dL; Potassium 4.8 mmol/L (3.5-5.1); Protein, Total 7.8 g/dL (6.4-8.2); Sodium Level 139 mmol/L (136-145); Thyroid Stim Hormone (TSH) 0.84 uIU/mL (0.358-3.74); Triglycerides 159 mg/dL; Very Low Density Lipoprotein 32 mg/dL (5-40)
== END | disposition home or self-care (01) ==
LOC: BIMLAB 09:30
PROVIDERS: PCP Nurse Practitioner Family; Referring Provider Nurse Practitioner Family; Visit Provider Nurse Practitioner Family
DX: F41.9 Anxiety disorder, unspecified (principal); F31.9 Bipolar disorder, unspecified; E53.8 Deficiency of other specified B group vitamins; E78.5 Hyperlipidemia, unspecified
CPT/HCPCS: 36415; 80053; 80061; 82306; 82607; 84443; 85025

== ENCOUNTER → 2023-07-30 | Outpatient (CLI) | payer OTHER, SELFPAY ==
[2023-07-30 12:07] LABS: Absolute Lymphocyte Count 2.75 X10^3/uL (0.83-4.51); Basophil# 0.07 X10^3/uL; Eosinophil# 0.32 X10^3/uL; Eosinophils% 4.8 % (0-5); Hematocrit 46.4 % (40-54); Hemoglobin 14.8 g/dL (13.0-16.5); Lymphocyte # 2.75 X10^3/ul (0.83-4.51); Lymphocyte % 40.9 % (19-41); Mean Corp Hgb Conc 31.9 g/dL (32-36); Mean Corpuscular Hgb 29.4 pg (27.0-32.0); Mean Corpuscular Volume 92.1 fL (80-94); Mean Platelet Vol. 11.2 fl (6.2-12.0); Monocyte# 0.57 X10^3/uL; Monocyte% 8.5 % (0-10); NRBC Flagged by Analyzer 0 % (0-5); Neutrophil # 2.98 X10^3/uL (2.7-7.7); Neutrophil % 44.4 % (47-70); Platelet Count 245 K/mm3 (150-450); RBC Distribution Width CV 11.9 % (11.6-14.6); RBC Distribution Width SD 40.4 fl (35.1-43.9); Red Blood Count 5.04 M/mm3 (4.6-6.2); White Blood Count 6.7 K/mm3 (4.4-11.0)
[2023-07-30 12:38] LABS: Vitamin B12 339 pg/mL (211-911); Vitamin D,25 Hydroxy 29.5 ng/mL
[2023-07-30 12:48] LABS: ALB/GLOB Ratio 1.2 RATIO (0.9-2.4); AST(SGOT) 32 U/L (15-37); Alanine Aminotransfer ALT/SGPT 73 U/L (16-61); Albumin, Serum 3.8 g/dL (3.2-5.0); Alkaline Phosphatase 85 U/L (45-117); Anion Gap 4 (5-15); BUN 19 mg/dL (7-18); BUN/Creat Ratio 13.5 RATIO (10-20); Calcium,Total 8.9 mg/dL (8.5-10.1); Chloride 109 mmol/L (98-107); Creatinine, Serum 1.41 mg/dL (0.70-1.30); EST Glomerular Filtration Rate 58 mL/min (>60); Est Glom Filt Rate - Afr Amer 71 mL/min (>60); Globulin 3.3 g/dL (2.2-4.2); Glucose 129 mg/dL (74-106); Potassium 3.9 mmol/L (3.5-5.1); Protein, Total 7.1 g/dL (6.4-8.2); Sodium Level 140 mmol/L (136-145); Thyroid Stim Hormone (TSH) 1.49 uIU/mL (0.358-3.74)
[2023-08-05 09:09] LABS: Testosterone, % Free 2.53 % (1.50-4.20); Testosterone, Free 5.89 ng/dL (5.00-21.00); Testosterone, Total 233 ng/dL (264-916)
== END | disposition home or self-care (01) ==
LOC: BIMLAB 08:09
PROVIDERS: PCP Nurse Practitioner Family; Visit Provider Nurse Practitioner Family
DX: R53.83 Other fatigue (principal)
CPT/HCPCS: 36415; 80053; 82306; 82607; 82746; 84402; 84403; 84443; 85025

== ENCOUNTER → 2023-08-11 | Outpatient (CLI) | payer OTHER, SELFPAY ==
[2023-08-11 12:59] LABS: PSA,Total- Diagnostic 0.59 ng/mL (0.0-4.0)
== END | disposition home or self-care (01) ==
LOC: BIMLAB 08:47
PROVIDERS: PCP Nurse Practitioner Family; Visit Provider Nurse Practitioner Family
DX: E29.1 Testicular hypofunction (principal)
CPT/HCPCS: 36415; 84153

== ENCOUNTER → 2023-09-14 | Outpatient (CLI) | payer OTHER, SELFPAY ==
[2023-09-14 12:43] LABS: Absolute Lymphocyte Count 2.26 X10^3/uL (0.83-4.51); Absolute Neutrophil Count 2.8 X10^3/uL (2.0-7.7); Basophil# 0.06 X10^3/uL; Eosinophil# 0.35 X10^3/uL; Eosinophils% 5.8 % (0-5); Hematocrit 44.7 % (40-54); Hemoglobin 14.5 g/dL (13.0-16.5); Lymphocyte # 2.26 X10^3/ul (0.83-4.51); Lymphocyte % 37.5 % (19-41); Mean Corp Hgb Conc 32.4 g/dL (32-36); Mean Corpuscular Hgb 29.7 pg (27.0-32.0); Mean Corpuscular Volume 91.6 fL (80-94); Monocyte# 0.52 X10^3/uL; Monocyte% 8.6 % (0-10); NRBC Flagged by Analyzer 0 % (0-5); Neutrophil # 2.81 X10^3/uL (2.7-7.7); Neutrophil % 46.8 % (47-70); Platelet Count 223 K/mm3 (150-450); RBC Distribution Width CV 12.4 % (11.6-14.6); RBC Distribution Width SD 41.3 fl (35.1-43.9); Red Blood Count 4.88 M/mm3 (4.6-6.2)
[2023-09-19 16:09] LABS: Testosterone, % Free 2.99 % (1.50-4.20); Testosterone, Free 7.06 ng/dL (5.00-21.00); Testosterone, Total 236 ng/dL (264-916)
== END | disposition home or self-care (01) ==
LOC: BIMLAB 08:02
PROVIDERS: PCP Nurse Practitioner Family; Visit Provider Nurse Practitioner Family
DX: E29.1 Testicular hypofunction (principal)
CPT/HCPCS: 36415; 84402; 84403; 85025

== ENCOUNTER → 2023-12-23 | Outpatient (CLI) | payer OTHER, SELFPAY ==
[2023-12-23 13:07] LABS: White Blood Count 5.3 K/mm3 (4.4-11.0)
[2023-12-23 13:08] LABS: Hematocrit 47.6 % (40-54); Hemoglobin 15.7 g/dL (13.0-16.5); Mean Corpuscular Hgb 29.6 pg (27.0-32.0); Mean Corpuscular Volume 89.8 fL (80-94); Platelet Count 237 K/mm3 (150-450); RBC Distribution Width CV 11.5 % (11.6-14.6)
[2023-12-23 13:09] LABS: Basophil% 1.1 % (0-1); Eosinophils% 4.9 % (0-5); Lymphocyte % 37.8 % (19-41); Mean Platelet Vol. 10.4 fl (6.2-12.0); Monocyte% 8.9 % (0-10); Neutrophil % 47.1 % (47-70)
[2023-12-23 13:10] LABS: Absolute Lymphocyte Count 1.99 X10^3/uL (0.83-4.51); Absolute Neutrophil Count 2.5 X10^3/uL (2.0-7.7); Eosinophil# 0.26 X10^3/uL; Lymphocyte # 1.99 X10^3/ul (0.83-4.51); Monocyte# 0.47 X10^3/uL; Neutrophil # 2.47 X10^3/uL (2.7-7.7)
[2023-12-23 13:11] LABS: Basophil# 0.06 X10^3/uL
[2023-12-23 13:16] LABS: Vitamin B12 507 pg/mL (211-911); Vitamin D,25 Hydroxy 31.8 ng/mL
[2023-12-23 14:00] LABS: Anion Gap 5 (5-15); BUN 15 mg/dL (7-18); BUN/Creat Ratio 12.7 RATIO (10-20); Calcium,Total 9.6 mg/dL (8.5-10.1); Chloride 105 mmol/L (98-107); Cholesterol 228 mg/dL (200); Creatinine, Serum 1.18 mg/dL (0.70-1.30); EST Glomerular Filtration Rate 71 mL/min (>60); Est Glom Filt Rate - Afr Amer 86 mL/min (>60); Glucose 116 mg/dL (74-106); High Density Lipoprotein 42 mg/dL; PSA,Total - Annual Screen 0.63 ng/mL (0.00-4.00); Potassium 4.7 mmol/L (3.5-5.1); Sodium Level 139 mmol/L (136-145); Triglycerides 183 mg/dL; Very Low Density Lipoprotein 37 mg/dL (5-40)
[2023-12-30 11:09] LABS: Testosterone, % Free 2.78 % (1.50-4.20); Testosterone, Free 9.31 ng/dL (5.00-21.00); Testosterone, Total 335 ng/dL (264-916)
== END | disposition home or self-care (01) ==
LOC: VSLAB 09:19
PROVIDERS: PCP Nurse Practitioner Family; Visit Provider Nurse Practitioner Family
DX: Z12.5 Encounter for screening for malignant neoplasm of prostate (principal); E29.1 Testicular hypofunction; Z13.220 Encounter for screening for lipoid disorders; E56.9 Vitamin deficiency, unspecified
CPT/HCPCS: 36415; 80048; 80061; 82306; 82607; 84153; 84402; 84403; 85025; G0103

== ENCOUNTER → 2024-06-21 | Outpatient (CLI) | payer OTHER, SELFPAY ==
[2024-06-21 19:18] LABS: Vitamin B12 843 pg/mL (180-914); Vitamin D,25 Hydroxy 23.6 ng/mL (30-100)
[2024-06-22 11:57] LABS: Cholesterol 238 mg/dL (<=200); High Density Lipoprotein 44 mg/dL; Low Density Lipoprotein Calc. 158 mg/dL; Triglycerides 179 mg/dL; Very Low Density Lipoprotein 36 mg/dL (5-40); cholesterol:hdl ratio screen 5.43
[2024-06-25 13:08] LABS: Testosterone, % Free 2.72 % (1.50-4.20); Testosterone, Free 15.12 ng/dL (5.00-21.00); Testosterone, Total 556 ng/dL (264-916)
== END | disposition home or self-care (01) ==
LOC: BIMLAB 08:21
PROVIDERS: PCP Nurse Practitioner Family; Referring Provider Nurse Practitioner Family; Visit Provider Nurse Practitioner Family
DX: E56.9 Vitamin deficiency, unspecified (principal); E29.1 Testicular hypofunction; Z13.220 Encounter for screening for lipoid disorders
CPT/HCPCS: 36415; 80061; 82306; 82607; 84402; 84403

== ENCOUNTER → 2024-08-03 | Outpatient (CLI) | payer OTHER, SELFPAY ==
[2024-08-03 11:52] LABS: Color, Urine Straw (Yellow); Glucose, Dipstick Normal (Normal); Ketone-Dipstick Negative (Negative); Leukocyte Esterase-Dipstick 25 /ul (Negative); Nitrite-Dipstick Negative (Negative); Occult Blood-Urine Negative /ul (Negative); Protein-Dipstick 15 mg/dl (Negative); Specific Gravity, Urine 1.025 (1.002-1.030); Urine Bilirubin Dipstick Negative (Negative); Urine Clarity Turbid (Clear); Urine Urobilinogen Normal (Normal)
== END | disposition home or self-care (01) ==
LOC: VSLAB 09:35 → LABSPEC 09:37
PROVIDERS: PCP Nurse Practitioner Family; Visit Provider Nurse Practitioner Family
DX: R30.0 Dysuria (principal)
CPT/HCPCS: 81002; 87086

== ENCOUNTER → 2025-01-13 | Outpatient (CLI) | payer OTHER, SELFPAY ==
[2025-01-19 13:08] LABS: Testosterone, % Free 3.88 % (1.50-4.20); Testosterone, Free 12.49 ng/dL (5.00-21.00)
== END | disposition home or self-care (01) ==
LOC: BIMLAB 08:20
PROVIDERS: PCP Nurse Practitioner Family; Referring Provider Nurse Practitioner Family; Visit Provider Nurse Practitioner Family
DX: E29.1 Testicular hypofunction (principal)
CPT/HCPCS: 36415; 84402; 84403; 84443